=== PATIENT | male | born 1955 | race American Indian/Alaskan Native ===

== ENCOUNTER 2017-11-16 21:26 | Emergency (ER) | payer OTHER ==
[2017-11-16] MEDS ORDERED: ZOFRAN ODT PO ONE (22:56)
[2017-11-16] MEDS ORDERED: NORCO 5/325 PO ONE (22:56)
[2017-11-16] MEDS ORDERED: ZOFRAN ODT ONE (22:57)
[2017-11-16] MEDS ORDERED: NORCO 5/325 ONE (22:58)
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
[2017-11-17] MEDS ORDERED: NORCO 5/325 PO ONE (04:21)
[2017-11-17 04:47] VITALS: BP 138/89
== END 2017-11-17 04:50 | disposition home or self-care (01) ==
LOC: ED 21:26
DX: M54.5 Low back pain (principal); M54.2 Cervicalgia; I10 Essential (primary) hypertension; F17.200 Nicotine dependence, unspecified, uncomplicated; Z91.018 Allergy to other foods
CPT/HCPCS: 70450; 72125; 72131; 99283; Q0162